=== PATIENT | male | born 1960 | race Caucasian/White ===

== ENCOUNTER → 2020-12-05 16:56 | Outpatient (CLI) | payer OTHER, SELFPAY ==
--- NOTE | ~2020-12-05 | MR_ITS ---
EXAMINATION: MR lumbar spine wo con DATE: 12/05/2020 17:54 INDICATION: Lumbar radiculopathy with bilateral leg numbness and weakness TECHNIQUE: Magnetic resonance imaging (MRI) of the lumbar spine was performed without intravenous con trast. Sequences included sagittal T2-weighted FSE, sagittal T2-weighted FS FSE, sagittal T1-weighted FSE, and axial T2-weighted FSE. COMPARISON: CT abdomen and pelvis dated 06/05/2019 FINDINGS: 15 degree levoscoliosis measured between T12 and L3. 2 mm retrolisthesis L4 on L5 and 3 mm retrolisth esis L5 on S1. Chronic mild anterior wedging at T11 and T12. Lumbar vertebral body heights are normal . There multiple small Schmorl's nodes in the upper lumbar and lower thoracic spine. There are low si gnal intensity Modic type III degenerative endplate changes at several levels in the lumbar spine wit h corresponding sclerotic changes evident on the CT images. Marrow signal intensity is otherwise unre markable. Severe disc height loss at L2-L3, L4-L5 and L5-S1 and moderate disc height loss at the vashti ining disc spaces between T10 and L4. The conus medullaris terminates at L1. There is normal signal i n the caudal spinal cord. Paravertebral soft tissues are unremarkable. The following disc levels are specifically discussed: T12-L1: Disc is bulging with annular fissure and superimposed right paracentral small disc protrusion . There is mild bilateral facet joint osteoarthritis. There is mild bilateral neural foraminal stenos is. There is mild central canal stenosis. L1-L2: Disc is bulging with annular fissure. There is moderate bilateral facet joint osteoarthritis. There is mild to moderate left and severe right neural foraminal stenosis. There is mild central thai l stenosis. L2-L3: Disc is bulging with annular fissure. There is hypertrophy of the ligamentum flavum. There is moderate bilateral facet joint osteoarthritis. There is moderate left and moderate right neural emani inal stenosis. There is moderate central canal stenosis. L3-L4: Disc is bulging with annular fissure. There is hypertrophy of the ligamentum flavum. There is moderate bilateral facet joint osteoarthritis. There is moderate bilateral neural foraminal stenosis . There is severe central canal stenosis. L4-L5: Disc is bulging with annular fissure and superimposed central disc extrusion with disc materia l extending a few millimeters cephalad and caudal to the level of the endplates. There is hypertrophy of the ligamentum flavum. There is moderate right and severe left facet joint osteoarthritis. There is a right and moderate to severe left neural foraminal stenosis. There is severe central canal steno sis along with severe narrowing of the left lateral recess compressing the traversing left L5 nerve r oot. L5-S1: Disc is bulging. There is hypertrophy of the ligamentum flavum. There is moderate to severe bi lateral facet joint osteoarthritis. There is severe bilateral neural foraminal stenosis. There is mil d central canal stenosis. IMPRESSION: 1. Mild lumbar levoscoliosis with severe spondylosis including multilevel moderate to severe central canal and bilateral neural foraminal stenosis as detailed above. Reviewed, dictated and finalized at location A. INE ENGINEER IMPRESSION: 1. Mild lumbar levoscoliosis with severe spondylosis including multilevel moder ate to severe central canal and bilateral neural foraminal stenosis as detailed above.
== END ==
PROVIDERS: Visit Provider Physician Assistant Medical
DX: M47.26 Other spondylosis with radiculopathy, lumbar region (principal)
CPT/HCPCS: 72148

== ENCOUNTER → 2022-04-17 11:35 | Outpatient (CLI) | payer OTHER, SELFPAY ==
--- NOTE | ~2022-04-17 | XR_ITS ---
EXAMINATION: XR knee LT min 4V DATE: 04/17/2022 12:35 INDICATION: Left knee pain. TECHNIQUE: 4 views of left knee including standing views were obtained. COMPARISON: None. FINDINGS: Bone alignment is normal. No fracture. There is mild tricompartmental osteoarthritis charac terized by marginal osteophytes. No joint space narrowing. There is chondrocalcinosis of the menisci. There is a small knee joint effusion. IMPRESSION: 1. Mild left knee osteoarthritis. 2. Small left knee joint effusion. Reviewed, dictated and finalized at location A.
== END ==
PROVIDERS: PCP Family Medicine; Visit Provider Family Medicine
DX: M17.12 Unilateral primary osteoarthritis, left knee (principal); M25.462 Effusion, left knee; M11.262 Other chondrocalcinosis, left knee
CPT/HCPCS: 73564

== ENCOUNTER 2023-10-16 07:59 | Outpatient (CLI) | payer MEDICARE, SELFPAY ==
--- NOTE | 2023-10-16 09:00 | ECG_ITS ---
Measurements Intervals [place] Rate: 81 P: 11 CA: 172 QRS: 0 QRSD: 87 T: 50 QT: 364 QTc: 425 Interpretive Statements SINUS RHYTHM WITH OCCASIONAL SUPRAVENTRICULAR PREMATURE COMPLEXES OTHERWISE UNREMARKABLE ECG NO PREVIOUS ECG AVAILABLE FOR COMPARISON Electronically Signed On 10-16-2023 15:11:50 TOOTH GRINDER by Mitchell Cuevas M.D.
[2023-10-16 09:35] LABS: Basophils Absolute Auto 0.1 K/mm3 (0.0-0.1); Basophils Percent Auto 0.5 % (0.2-1.2); Eosinophils Absolute Auto 0.4 K/mm3 (0-0.3); Eosinophils Percent Auto 3.9 % (0-4.4); Hematocrit 42.5 % (42.0-52.0); Hemoglobin 13.3 g/dL (14.0-18.0); Immature Granulocyte Absolute 0.05 K/mm3 (0.00-0.031); Immature Granulocyte Percent A 0.5 % (0-0.5); Lymphocytes Absolute Auto 1.07 K/mm3 (0.9-3.2); Lymphocytes Percent Auto 10.8 % (18.3-44.2); Mean Corpuscular HGB Conc 31.3 g/dl (32-36); Mean Corpuscular Hemoglobin 29.8 pg (26-34); Mean Corpuscular Volume 95.1 fl (80-100); Mean Platelet Volume 9.2 fl (7.4-10.4); Monocytes Absolute Auto 0.9 K/mm3 (0.1-0.6); Monocytes Percent Auto 9.5 % (2.6-8.5); Neutrophils Absolute Auto 7.4 K/mm3 (1.3-6.7); Neutrophils Percent Auto 74.8 % (45.5-73.1); Platelet Count Result 363 k/mm3 (150-375); Red Blood Count 4.47 M/mm3 (4.6-6.20); Red Cell Distribution Width 13.9 % (11.5-14.5); White Blood Count 9.9 K/mm3 (4.5-10.0)
[2023-10-16 09:46] LABS: Albumin Level 4.4 g/dL (3.5-5.1); Anion Gap 7 mmol/L (8-16); Blood Urea Nitrogen 26 mg/dL (9-20); Calcium 9.2 mg/dL (8.4-10.2); Carbon Dioxide 26 mmol/L (22-30); Chloride 106 mmol/L (98-107); Estimated Glomerular Filt Rate > 60; Glucose 103 mg/dL (65-110); Potassium 4.4 mmol/L (3.4-5.0); Sodium 139 mmol/L (137-145)
[2023-10-16 09:49] LABS: Urine Cotinine NEGATIVE
[2023-10-16 10:03] LABS: Hemoglobin A1C 5.3 % (<5.7)
== END 2023-10-16 08:00 | disposition home or self-care (01) ==
LOC: ANHSURGERY 08:05
PROVIDERS: PCP Family Medicine; Visit Provider Orthopaedic Surgery
DX: M17.12 Unilateral primary osteoarthritis, left knee (principal); Z01.818 Encounter for other preprocedural examination
CPT/HCPCS: 80048; 80307; 82040; 83036; 85025; 87081; 93005

== ENCOUNTER 2023-11-11 02:39 | Day surgery (SDC) | payer MEDICARE, SELFPAY ==
--- NOTE | 2023-10-16 07:44 | PC.NURSE ---
PRE-OP INSTRUCTIONS, PLEASE READ CAREFULLY Report to the Outpatient Waiting Room, entrance under the green pavilion located off [address], at time _1000_ on date _11/11/23_. Planned Procedure Time: _1200_. PACK A SMALL OVERNIGHT BAG AND LEAVE IN THE CAR ALONG WITH YOUR WALKER Time changes happen often and if your time is changed the preop area will call you the afternoon before. - You and your visitor will be asked to self-screen and do not enter if you have any COVID symptoms. - A mask is optional within the hospital at this time. -VISITING HOURS 8AM-8PM Patients may have clear liquids (water, carbonated beverages, clear teas, apple juice) until 3 hours prior to surgery (0900 AM) with a maximum of 20 ounces. - No food from midnight until time of surgery Take the following medications with a SIP of water the morning of surgery: _TYLENOL IF NEEDED_ DO NOT STOP ANY OF YOUR OTHER PRESCRIPTION MEDICATIONS PRIOR TO SURGERY ?EXCEPT THE FOLLOWING Medications to discontinue per DR. FALL - _MELOXICAM 7 DAYS PRIOR TO SURGERY, Date to take last dose 11/03/23_ Medications to discontinue per ANESTHESIA - _MULTIVITAMIN 3 DAYS PRIOR TO SURGERY, Date to take last dose 11/07/23_ Please no make-up, nail norwegian, hairspray, perfume, deodorant, or body powder the day of surgery. No jewelry (including any body piercings) or valuables the day of surgery, leave them at home. Please take a shower or bath the night before, or the morning of, surgery with an antibacterial soap. Wear comfortable, loose fitting clothing. - Jewelry must be removed prior to entering the operating room. Rings and piercings that are not removed may be cut off. - The hospital will not accept responsibility for valuables. - Please leave all valuables, including medications, at home the day of surgery. If you are going home after surgery, a licensed rear load truck driver must drive you home. - NO public transportation without another adult if you receive anesthesia. - We recommend that an adult stay with you for 24 hours following discharge. - We also recommend that you do not drive, make important decision, drink alcoholic beverages, or take any drugs that were not prescribed by your health care provider for at least 24 hours after your discharge time. Follow any additional instructions given to you from your surgeon. If you or anyone in your household have experienced Covid symptoms in the past week, please notify your surgeon or the nurse liaison at the phone number below for possible testing. Instructions given to _PATIENT_and asked if any additional questions and then verbalized understanding. Patient advised to call surgeon office or pre surgery nurse liaison [phone] if any additional questions.
[2023-10-16 08:29] VITALS: BP 144/88; PULSE 90; RESP 20; TEMP 36.9; O2SAT 98; BMI 32.8
[2023-11-11] VITALS (9 sets, daily range): BP systolic 122–144; BP diastolic 72–92; PULSE 84–96; RESP 16–18; TEMP 36.1–36.4; O2SAT 91–99
--- NOTE | ~2023-11-11 | XR_ITS ---
EXAMINATION: [id number] DATE: 11/11/2023 17:26 INDICATION: Postoperative evaluation following left total knee arthroplasty. TECHNIQUE: Anteroposterior and lateral views of the left knee were obtained. COMPARISON: 04/17/2022 FINDINGS: Left total knee arthroplasty without patellar resurfacing appears well seated and in near anatomic al ignment. No fractures identified. Expected postoperative subcutaneous and intra-articular gas. IMPRESSION: 1. Left total knee arthroplasty, negative for postoperative purposes. Reviewed, dictated and finalized at location A. TECHNICIAN
--- NOTE | 2023-11-11 07:41 | PM.IMHP ---
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 Farr who presents today for left total knee arthroplasty. Patient has severe lateral compartment osteoarthritis left knee. He has been having symptoms for well over a year. He had a cortisone injection in late 2021 which gave him almost no relief. He has been modifying activities in dealing with pain since then. He does take meloxicam daily. Patient has reached a point his knee is bothering on a regular basis and it is making it difficult for activities of daily living. He would like to proceed with total knee arthroplasty at this point. Review of Systems Review of Systems: All systems reviewed & are unremarkable except as noted in HPI and below PMFSH Past Medical History Medical History Actinic keratosis Rotator cuff arthropathy of left shoulder (~2019) Surgical History Surgical History Status post epidural steroid injection Family History Family History Mother Family history of blood dyscrasia Grandparent Family history of cardiovascular disease Father Family history of Alzheimer's disease Family history of dementia Social History Social History (Updated 10/21/23 @ 14:08 by Becca Aquino MA) Social History: Caffeine- coffee Years smoked: 4 Smoking status: Former smoker Tobacco type: cigarettes Second hand tobacco smoke exposure: No Smoking end date: 08/04/93 Additional smoking assessment comments: CONFIRMED WITH PT-SMOKING 1 CIG/DAY, DENIES ALL FORMS OF TOBACCO USE Alcohol intake: current Drinks per week: 5 Alcohol use details: occasionally Substance use: never Substance use type: does not use Lack of Transportation: No Lack of Food: Never True Current Housing: I Have Housing Concerned About Future Housing: No Difficulty Paying Gas/Electric Bills: No Difficulty Paying for Meds: No Currently Unemployed: No Education: High School Diploma/GED Difficulty w/ Childcare or Family Care: No Living arrangements: with family Spiritual care concerns: No Meds Home Medications and Allergies Home Medications Medication Instructions Recorded Confirmed Type meloxicam 15 mg tablet 15 mg PO DAILY #90 tabs 07/28/23 10/21/23 Rx irbesartan 300 mg tablet See Rx Instructions .Route 09/28/23 10/21/23 Rx .COMPLEX #90 tabs acetaminophen 500 mg tablet 1,000 mg PO QID PRN Pain 10/16/23 10/21/23 History bupropion HCl 300 mg 24 hr tablet, 300 mg PO HS 10/16/23 10/21/23 History extended release cyanocobalamin (vitamin B-12) 1,000 mcg PO HS 10/16/23 10/21/23 History 1,000 mcg capsule ferrous sulfate 325 mg (65 mg 325 mg PO HS 10/16/23 10/21/23 History iron) tablet (Iron (ferrous sulfate)) [id number] 300 mcg-K 60 1 tablet PO HS 10/16/23 10/21/23 History mcg-lycop 600 mcg-lutein 300 mcg tablet (Centrum Silver Ultra Men's) omeprazole 40 mg capsule,delayed 40 mg HS 10/16/23 10/21/23 History release fluoxetine 40 mg capsule 40 mg PO DAILY #90 caps 10/21/23 10/21/23 Rx Allergies Allergy/AdvReac Type Severity Reaction Status Date / Time lisinopril Allergy Unknown Anaphylaxis Verified 10/21/23 14:06 Exam Narrative: 63-year-old male alert pleasant. He is 5 ft 10 and 220 lb. His left knee has a moderate effusion. Range of motion is from 7-125 degrees. He has normal stability in the knee. Some mild tenderness over the lateral joint line. He has mild valgus alignment. Hip range of motion is full without discomfort. Negative Stinchfield maneuver. Normal quad strength. 2+ dorsalis pedis and posterior artery pulse palpable. Normal sensation to left lower extremity and no edema. Resp: Auscultation: clear to auscultation bilaterally
--- NOTE | 2023-11-11 10:12 | WPDANESEPPF ---
Anes - Initial Pre Proc Eval Procedure: Operation Date: 11/11/23 12:00 Proposed Procedures p Left Total Knee Arthroplasty - Jaya Chen MD Date/Time: 11/11/23 10:12 Surgeon: Jaya Chen MD Pre Op Diagnosis: OA left knee Patient Data Age: 63 Gender: M Height: 1.79 m Weight: 105.5 kg Last Vital Signs Temp 98.5 F 10/16/23 08:29 Pulse 90 10/16/23 08:29 Resp 20 10/16/23 08:29 BP 144/88 H 10/16/23 08:29 Pulse Ox 98 10/16/23 08:29 O2 Del Method Room Air 10/16/23 08:29 Allergies Allergy/AdvReac Type Severity Reaction Status Date / Time lisinopril Allergy Unknown Anaphylaxis Verified 10/21/23 14:06 Home Medications Medication Instructions Recorded Confirmed Type meloxicam 15 mg tablet 15 mg PO DAILY #90 tabs 07/28/23 10/21/23 Rx irbesartan 300 mg tablet See Rx Instructions .Route 09/28/23 10/21/23 Rx .COMPLEX #90 tabs acetaminophen 500 mg tablet 1,000 mg PO QID PRN Pain 10/16/23 10/21/23 History bupropion HCl 300 mg 24 hr tablet, 300 mg PO HS 10/16/23 10/21/23 History extended release cyanocobalamin (vitamin B-12) 1,000 mcg PO HS 10/16/23 10/21/23 History 1,000 mcg capsule ferrous sulfate 325 mg (65 mg 325 mg PO HS 10/16/23 10/21/23 History iron) tablet (Iron (ferrous sulfate)) [id number] 300 mcg-K 60 1 tablet PO HS 10/16/23 10/21/23 History mcg-lycop 600 mcg-lutein 300 mcg tablet (Centrum Silver Ultra Men's) omeprazole 40 mg capsule,delayed 40 mg HS 10/16/23 10/21/23 History release fluoxetine 40 mg capsule 40 mg PO DAILY #90 caps 10/21/23 10/21/23 Rx Patient hx anesthesia problems: none Family hx anesthesia problems: none Results Review: All pre-operative results and documents have been reviewed as part of the pre-operative evaluation. [facility] Past Medical History Medical History Actinic keratosis Rotator cuff arthropathy of left shoulder (~2019) Surgical History Surgical History Status post epidural steroid injection Family History Family History Mother Family history of blood dyscrasia Grandparent Family history of cardiovascular disease Father Family history of Alzheimer's disease Family history of dementia Social History Social History (Updated 10/21/23 @ 14:08 by Becca Aquino MA) Social History: Caffeine- coffee Years smoked: 4 Smoking status: Former smoker Tobacco type: cigarettes Second hand tobacco smoke exposure: No Smoking end date: 08/04/93 Additional smoking assessment comments: CONFIRMED WITH PT-SMOKING 1 CIG/DAY, DENIES ALL FORMS OF TOBACCO USE Alcohol intake: current Drinks per week: 5 Alcohol use details: occasionally Substance use: never Substance use type: does not use Lack of Transportation: No Lack of Food: Never True Current Housing: I Have Housing Concerned About Future Housing: No Difficulty Paying Gas/Electric Bills: No Difficulty Paying for Meds: No Currently Unemployed: No Education: High School Diploma/GED Difficulty w/ Childcare or Family Care: No Living arrangements: with family Spiritual care concerns: No Anes - Eval Final PreProcedure Day of Procedure 11/11/23 10:12 Patient weight: obese Heart: regular rate and rhythm Lungs: clear to auscultation Airway: Mallampati scale class II Neurological: alert and oriented Last oral intake: >/= 8 hours ASA classification: III Emergent: no Anesthetic plan: proceed Anesthesia type and monitoring: general ETT and standard monitoring Results Review: All pre-operative results and documents have been reviewed as part of the pre-operative evaluation. Informed Consent: The patient's anesthetic plan and its attendant risks and benefits were discussed with the patient/family/POA. Questions were solicited and answers provided to t
[2023-11-11] MEDS: LACTATED RINGERS 1,000 ML 30 ML IV CONT ×2 (10:15→17:15)
[2023-11-11] MEDS: VANCOMYCIN 1,500 MG/NS 500 ML 1,500 MG/500 ML BAG 250 MG IVPB (10:15)
[2023-11-11] MEDS: TRANEXAMIC ACID 1,000MG/ISO100 1,000 MG/100 ML BAG 200 MG IVPB (10:30)
[2023-11-11] MEDS: ACETAMINOPHEN 500 MG TABLET 1000 MG PO (10:51)
--- NOTE | 2023-11-11 11:53 | WPDHPUPDATE1 ---
History and Physical Update Update Date/Time: 11/11/23 11:53 History and Physical has been reviewed, including an updated exam of the patient. There are NO changes in the patient's condition. Risks, benefits, and alternatives have been discussed and questions answered. Patient agrees to proceed with procedure.
[2023-11-11] MEDS: ceFAZolin 2 GM/D5W 50 ML 2 GM/50 ML BAG IVPB (12:13)
[2023-11-11] MEDS: KETOROLAC 15 MG/ML VIAL (*BKC) IV PUSH ×2 (12:32→21:35)
[2023-11-11] MEDS: ceFAZolin SODIUM 1 GM VIAL 3 GM (13:24)
[2023-11-11] MEDS: GENTAMICIN BONE CEMENT REFOBACIN 1 EACH TOPICAL (15:25)
[2023-11-11] MEDS: TRANEXAMIC ACID 1,000 MG/10 ML AMPUL 1000 MG IV PUSH (15:41)
[2023-11-11] MEDS: ceFAZolin SODIUM 1 GM VIAL 2 GM IV PUSH (15:42)
--- NOTE | 2023-11-11 17:18 | W.PM.PROC2 ---
Procedure Note - Detailed Date of Procedure 11/11/23 Pre-op Diagnosis OA left knee, type two valgus deformity Post-op Diagnosis Same Procedure Performed Left total knee arthroplasty Surgeon Jaya Chen MD [employer] Anesthesia General Findings mm mm Description of Procedure Patient was brought to the operating room and general anesthesia was administered. The left knee was prepped draped usual fashion. Under anesthesia range of motion from 8? to 110?. He received 2 g of Ancef weight based vancomycin 1 g of tranexamic acid preoperatively. The limb was exsanguinated tourniquet elevated to 250 mmHg. A 7 in longitudinal midline incision was used and a standard parapatellar arthrotomy utilized. Infrapatellar and suprapatellar fat pads were excised a quadriceps synovectomy carried out. He had diffuse intense tenosynovitis throughout the knee and some of this was debulked. The quadriceps was scarred down to the femur with limited excursion and the muscle was mobilized of from the distal femoral metaphysis. The patella showed marginal osteophytes which were debrided with intact normal cartilage otherwise. The guide jennifer was inserted down the femoral canal after aspiration of canal contents using the 5 degree valgus cutting bushing 9 mm of bone removed the distal femur. This removed about 7 laterally. Next the tibial plateau was cut. He had a pronounced defect in the posterolateral margin of the lateral plateau over the femur had worn into this area in flexion. We removed about 6 mm of bone from the tibial plateau which removed equal amounts mediolaterally. This left posterior most aspect of the defect remaining at the posterior margin of the lateral plateau posterolateral. About 1 cm diameter. It was contained laterally and partially uncontained posteriorly. The meniscal remnants were excised and the PCL recessed. Because of his grade 2 valgus deformity, care was taken not to release any the deep medial capsule from the tibial plateau. Flexion gap at 90? was 8 mm medially 10 mm laterally. The femoral sizing guide was applied to the distal femur set at 4? of external rotation which matched Whitesides line. Posterior referencing pinholes were placed and the size 70 vanguard cutting block was applied AP and chamfer cuts were made. This gave a flush fit with the anterior chamfer the femoral trial with the anterior cortex. Bone quality was excellent throughout. The tibia was sized to a size 75. This fit line to line anteromedial to proper posterior lateral at proper rotation and is bone was wider than the trial so the posterolateral aspect of the trial covered area of the defect about 5 mm wide 1 cm posteromedial to anterolateral therefore I did not feel that any special long stem was indicated for additional support and I felt we could feel the defect with cement. On trialing we were too tight in flexion and extension. The tightness was present laterally both flexion and extension. Additional 2 mm of bone was removed the tibial plateau. I released the posterolateral capsule from the posterolateral margin of tibial plateau. Is ITB band did not need to be released as it was not excessively tight. And with the insert the knee had a barely positive bounce with the arthrotomy towel clip no bounce no towel clips in the arthrotomy and was still just a little bit tight in deep flexion. There was lift off the tibial trial insert in full flexion. We had already removed the posterior femoral osteophyte and because he had a flexion contracture we had also released posterior capsule centrally. An additional 1-1/2 mm of bone was removed from the tibial plateau and we made sure that the cut surface was perfectly flat. Again his bone density was very dense. Replacing the punch we then trialed with the insert and we had full extension with 2 mm of medial opening 2 mm of lateral opening and gravity flexion 125 without poly lift-off in full flexion lu
--- NOTE | 2023-11-11 18:33 | ADMGEN ---
This patient, Ollie Tellez, was admitted to 3 [facility] Room 303-01. Patient/family oriented to hospital policies and general routines including ID bracelet, bed and alarms, visiting hours, pain management, procedures, bathroom and other care routines, personal items, smoking policy, room service/diet, and visiting hours. Information on how to activate the Rapid Response Team has been discussed. Patient/Family are encouraged to report perceived risks to care and to ask questions if they do not understand what they are told or what they should do.
[2023-11-11] MEDS: IRBESARTAN 150 MG TABLET 300 MG PO (21:33)
[2023-11-11] MEDS: VANCOMYCIN 1,000 MG/NS 250 ML 1,000 MG/250 ML BAG 250 MG IVPB (21:33)
[2023-11-11] MEDS: APIXABAN 2.5 MG TABLET PO (21:34)
[2023-11-11] MEDS: ACETAMINOPHEN 325 MG TABLET 650 MG PO (21:34)
[2023-11-11] MEDS: OPTI-GEN TAB 1 TABLET PO (21:34)
[2023-11-11] MEDS: CYANOCOBALAMIN 1,000 MCG TABLET 1000 MCG PO (21:34)
[2023-11-11] MEDS: buPROPion HCL XL (24 HR) 150 MG TABCR 300 MG PO (21:34)
[2023-11-11] MEDS: FLUoxetine HCL 20 MG CAPSULE 40 MG PO (21:34)
[2023-11-11] MEDS: PANTOPRAZOLE 40 MG TABLET PO (21:35)
[2023-11-11] MEDS: oxyCODONE HCL (*CRX) 5 MG TAB IR PO (21:35)
[2023-11-12] VITALS (9 sets, daily range): BP systolic 126–144; BP diastolic 67–95; PULSE 81–130; RESP 14–20; TEMP 35.7–37.2; O2SAT 94–96; BMI 36.7
[2023-11-12] MEDS: ACETAMINOPHEN 325 MG TABLET 650 MG PO ×2 (05:31→10:26)
[2023-11-12] MEDS: oxyCODONE HCL (*CRX) 5 MG TAB IR PO ×2 (05:32→10:25)
--- NOTE | 2023-11-12 05:56 | ECG_ITS ---
Measurements Intervals [place] Rate: 95 P: 21 KS: 174 QRS: 2 QRSD: 95 T: 60 QT: 360 QTc: 454 Interpretive Statements SINUS RHYTHM ATRIAL PREMATURE COMPLEXES DELAYED PRECORDIAL R/S TRANSITION BASELINE ARTIFACT- I, II, III BORDERLINE ECG COMPARED TO ECG 10/16/2023 09:17:26 NO SIGNIFICANT CHANGES Electronically Signed On 11-12-2023 6:39:49 PREHEMMER by Jorge Alberto Thompson D.O.
[2023-11-12 07:05] LABS: Basophils Percent Auto 0.3 % (0.2-1.2); Eosinophils Percent Auto 0.3 % (0-4.4); Hematocrit 34.9 % (42.0-52.0); Hemoglobin 11.1 g/dL (14.0-18.0); Immature Granulocyte Absolute 0.08 K/mm3 (0.00-0.031); Immature Granulocyte Percent A 0.5 % (0-0.5); Lymphocytes Percent Auto 7.8 % (18.3-44.2); Mean Corpuscular HGB Conc 31.8 g/dl (32-36); Mean Corpuscular Hemoglobin 29.8 pg (26-34); Mean Corpuscular Volume 93.8 fl (80-100); Mean Platelet Volume 9.5 fl (7.4-10.4); Monocytes Absolute Auto 1.7 K/mm3 (0.1-0.6); Monocytes Percent Auto 11.2 % (2.6-8.5); Neutrophils Absolute Auto 12.3 K/mm3 (1.3-6.7); Neutrophils Percent Auto 79.9 % (45.5-73.1); Platelet Count Result 298 k/mm3 (150-375); Red Blood Count 3.72 M/mm3 (4.6-6.20); Red Cell Distribution Width 13.7 % (11.5-14.5); White Blood Count 15.4 K/mm3 (4.5-10.0)
[2023-11-12 07:08] LABS: Anion Gap 5 mmol/L (8-16); Blood Urea Nitrogen 30 mg/dL (9-20); Calcium 8.4 mg/dL (8.4-10.2); Carbon Dioxide 26 mmol/L (22-30); Chloride 105 mmol/L (98-107); Estimated CRCL calculation 93 ml/min; Estimated Glomerular Filt Rate > 60; Glucose 104 mg/dL (65-110); Potassium 3.8 mmol/L (3.4-5.0); Sodium 136 mmol/L (137-145)
--- NOTE | 2023-11-12 07:39 | PC.NURSE ---
pt was tachycardic this AM, EKG stat completed, results called in to Dr Pierce. ST with PVCs lasted for about 15 minutes, resolved since. no new orders. continue to monitor
--- NOTE | 2023-11-12 09:00 | P.PNAN_ITS ---
Anes - Prog Note Post-Op Date/Time: 11/12/23 09:00 Cardiovascular status: normal Respiratory status: normal Airway patency: baseline Mental status: baseline Post-Op hydration status: normal Vital Signs: Last Vital Signs Temp 36.6 C 11/12/23 07:48 Pulse 82 11/12/23 07:48 Resp 14 11/12/23 07:48 BP 133/73 11/12/23 07:48 Pulse Ox 94 11/12/23 07:48 O2 Del Method Nasal Cannula 11/11/23 18:00 O2 Flow Rate 2 11/11/23 18:00 Pain Score (VAS): 01/02 I/O: Intake & Output 11/11/23 11/12/23 11/12/23 23:59 07:59 15:59 Intake Total 350 1050 Output Total 600 Balance 350 450 Laboratory Tests 11/12/23 05:47 11/12/23 05:47 11/11/23 11/12/23 10:25 05:47 WBC 15.4 H RBC 3.72 L Hgb 11.1 L Hct 34.9 L MCV 93.8 MCH 29.8 MCHC 31.8 L RDW 13.7 Plt Count 298 MPV 9.5 Immature Gran % (Auto) 0.5 Neut % (Auto) 79.9 H Lymph % (Auto) 7.8 L Steele % (Auto) 11.2 H Eos % (Auto) 0.3 Baso % (Auto) 0.3 Lymph # (Auto) 1.20 Steele # (Auto) 1.7 H Eos # (Auto) 0.0 Baso # (Auto) 0.0 Abs Immat Gran (auto) 0.08 H Absolute Neuts (auto) 12.3 H Absolute Nucleated RBC 0.0 Nucleated RBC % 0.0 Sodium 136 L Potassium 3.8 Chloride 105 Carbon Dioxide 26 Anion Gap 5 L BUN 30 H Creatinine 0.90 Estim Creat Clear Calc 93 Estimated GFR > 60 Glucose 104 Calcium 8.4 Blood Type A Positive Antibody Screen Negative Post-procedural complaints: none Patient Feedback: Patient satisfied with anesthetic care.
--- NOTE | 2023-11-12 09:46 | ECG_ITS ---
Measurements Intervals [place] Rate: 92 P: 20 MD: 156 QRS: 8 QRSD: 87 T: 35 QT: 350 QTc: 435 Interpretive Statements SINUS RHYTHM ATRIAL PREMATURE COMPLEXES NONSPECIFIC T-WAVE ABNORMALITY- INFERIOR LEADS BORDERLINE ECG COMPARED TO ECG 11/12/2023 06:04:09 T-WAVE ABNORMALITY NOW PRESENT Electronically Signed On 11-12-2023 14:40:24 WAITER/WAITRESS DINING CAR by Jorge Alberto Thompson D.O.
--- NOTE | 2023-11-12 10:01 | P.PNAN_ITS ---
Anes - Prog Note Post-Op Date/Time: 11/12/23 10:01 Cardiovascular status: normal Respiratory status: normal Airway patency: baseline Mental status: baseline Post-Op hydration status: normal Vital Signs: Last Vital Signs Temp 36.6 C 11/12/23 07:48 Pulse 82 11/12/23 07:48 Resp 14 11/12/23 07:48 BP 133/73 11/12/23 07:48 Pulse Ox 94 11/12/23 07:48 O2 Del Method Room Air 11/12/23 08:38 O2 Flow Rate 2 11/11/23 18:00 Pain Score (VAS): 0 I/O: Intake & Output 11/11/23 11/12/23 11/12/23 23:59 07:59 15:59 Intake Total 350 1050 120 Output Total 600 Balance 350 450 120 Laboratory Tests 11/12/23 05:47 11/12/23 05:47 11/11/23 11/12/23 10:25 05:47 WBC 15.4 H RBC 3.72 L Hgb 11.1 L Hct 34.9 L MCV 93.8 MCH 29.8 MCHC 31.8 L RDW 13.7 Plt Count 298 MPV 9.5 Immature Gran % (Auto) 0.5 Neut % (Auto) 79.9 H Lymph % (Auto) 7.8 L [place] % (Auto) 11.2 H Eos % (Auto) 0.3 Baso % (Auto) 0.3 Lymph # (Auto) 1.20 [place] # (Auto) 1.7 H Eos # (Auto) 0.0 Baso # (Auto) 0.0 Abs Immat Gran (auto) 0.08 H Absolute Neuts (auto) 12.3 H Absolute Nucleated RBC 0.0 Nucleated RBC % 0.0 Sodium 136 L Potassium 3.8 Chloride 105 Carbon Dioxide 26 Anion Gap 5 L BUN 30 H Creatinine 0.90 Estim Creat Clear Calc 93 Estimated GFR > 60 Glucose 104 Calcium 8.4 Blood Type A Positive Antibody Screen Negative Post-procedural complaints: none Patient Feedback: Patient satisfied with anesthetic care.
[2023-11-12] MEDS: SENNA/DOCUSATE SODIUM TABLET 2 TAB PO (10:26)
[2023-11-12] MEDS: APIXABAN 2.5 MG TABLET PO (10:26)
[2023-11-12] MEDS: CELECOXIB 200 MG CAPSULE PO (10:27)
[2023-11-12] MEDS: polyethylene glycoL 3350 17 GM POWD.PACK PO (10:27)
[2023-11-12] MEDS: VANCOMYCIN 1,000 MG/NS 250 ML 1,000 MG/250 ML BAG 250 MG IVPB (10:27)
[2023-11-12 10:41] LABS: Troponin I < 0.012 ng/mL (0.000-0.034)
--- NOTE | 2023-11-12 11:06 | PM.PNORT ---
Progress Note: A&P Assessment and Plan (1) History of left knee replacement: Code(s): Z96.652 - Presence of left artificial knee joint Status: Acute Plan Patient is postop day 1 doing very well we went over his postoperative instructions in detail today he voiced understanding and agrees with above plan. See discharge instructions and discharge orders. The patient will follow-up in 2 weeks for postop recheck with Dr. Chen the patient will call immediately for any further problems difficulties or questions. Subjective Subjective Date/Time Seen: 11/12/23 11:06 Interval history: Patient doing well postop day 1 status post left total knee arthroplasty. No complaints looks comfortable alert oriented x3. Normal mood and affect. Tolerated physical therapy well today. Today bedside we discussed postoperative instructions in detail. I stressed elevation of the leg throughout the day except to get up every hour to walk and ambulate not let his leg hang down while sitting in a chair for more than 30 minutes for meals otherwise he should be walking or with his leg elevated. States his pain is well controlled we went over his medication list today. He is ready for discharge to home today. Review of Systems Review of Systems: Ten point review of systems otherwise negative Exam Narrative: Patient is alert oriented x3. Normal mood and affect. Vital signs stable afebrile neurovascularly intact wound clean and dry calves benign up ambulating independently with a walker did well in therapy today. Eating well no other postop complaints pain well controlled. Objective Data Vital Signs Vital Signs: Vital Signs - 24 hr 11/11/23 17:15 11/11/23 17:30 11/11/23 17:40 Temperature 36.4 C L Pulse Rate 96 94 Respiratory Rate 16 16 Blood Pressure 141/92 H 136/88 Pulse Oximetry 99 98 Oxygen Delivery Simple Face Mask Simple Face Mask Room Air Oxygen Flow Rate 6 6 11/11/23 17:45 11/11/23 18:00 11/11/23 18:15 Temperature 36.3 C L Pulse Rate 93 94 92 Respiratory Rate 16 16 16 Blood Pressure 132/85 144/91 H 140/85 Pulse Oximetry 91 97 96 Oxygen Delivery Room Air Nasal Cannula Oxygen Flow Rate 2 11/11/23 18:30 11/11/23 18:48 11/11/23 20:00 Temperature 36.2 C L 36.3 C L 36.1 C L Pulse Rate 91 92 92 Respiratory Rate 18 16 18 Blood Pressure 140/85 129/79 137/83 Pulse Oximetry 92 91 94 Oxygen Delivery Oxygen Flow Rate 11/12/23 00:25 11/11/23 20:00 11/12/23 00:00 Temperature 37.2 C Pulse Rate 85 95 81 Respiratory Rate 18 Blood Pressure 128/85 Pulse Oximetry 96 Oxygen Delivery Oxygen Flow Rate 11/12/23 04:00 11/12/23 05:03 11/12/23 05:55 Temperature 35.7 C L 35.9 C L Pulse Rate 87 91 130 H Respiratory Rate 20 20 Blood Pressure 143/91 H 144/95 H Pulse Oximetry 94 95 Oxygen Delivery Oxygen Flow Rate 11/12/23 07:48 11/12/23 08:38 Temperature 36.6 C Pulse Rate 82 Respiratory Rate 14 Blood Pressure 133/73 Pulse Oximetry 94 Oxygen Delivery Room Air Oxygen Flow Rate Intake/Output Intake/Output: Intake & Output 11/09/23 11/10/23 11/11/23 11/12/23 23:59 23:59 23:59 23:59 Intake Total 350 1170 Output Total 600 Balance 350 570 Meds/Results Medications: Active Medications Generic Name Dose Route Start Last Admin Trade Name Freq PRN Reason Stop Dose Admin Acetaminophen 650 mg 11/11/23 18:00 11/12/23 10:26 Acetaminophen 325 Mg Tablet PO 650 mg Q4H CARLOS Administration Apixaban 2.5 mg 11/11/23 21:00 11/12/23 10:26 Apixaban 2.5 Mg Tablet PO 2.5 mg Q12HR CARLOS Administration Bupropion HCl 300 mg 11/11/23 21:00 11/11/23 21:34 Bupropion Hcl Xl (24 Hr) 150 Mg Tabcr PO 300 mg HS CARLOS Administration Cefdinir 300 mg 11/12/23 21:00 Cefdinir 300 Mg Capsule PO Q12HR CARLOS Celecoxib 200 mg 11/12/23 08:00 11/12/23 10:27 Celecoxib 200 Mg Capsule PO 200 mg DAILY@0800 [facility] Admin
--- NOTE | 2023-11-12 11:20 | PM.DS ---
DS: Admitting Diagnosis Discharge Date November 12, 2023 Admitting Diagnosis Admitting diagnosis-advanced primary osteoarthritis left knee joint Discharge diagnosis-same, status post left total knee arthroplasty DS: Summary Hospital Course Hospital Course: The patient underwent a left total knee arthroplasty performed by Dr. Chen on November 11, 2023. Postop day 1 the patient was doing well he was noted to have some PACs on the heart monitor but this is unchanged from preop testing and appears to be chronic in nature for him. He has no other cardiac complications at this time. Otherwise is doing well up ambulating independently with a walker weight-bearing as tolerated wound is clean and dry vital signs are stable he is afebrile neurovascular is intact and dry calves benign. He is eating well did well in therapy pain is well controlled. We covered the postoperative medications and discharge instructions in detail today at bedside they are as follows listed below. The patient voiced understanding he is to be discharged home in good condition general diet it was stressed to him that he should elevate his legs much as possible to help with swelling control. He will have outpatient physical therapy at our office and follow up with the surgeon in 2 weeks. He is to change the dressing in 1 week will call the office immediately for any problems difficulties or questions. Time Spent with Patient Time attestation: Total time spent providing and/or coordinating discharge services: Exam Narrative: Vital signs stable afebrile neurovascular intact wound clean and dry calves benign ambulating independently and christian well controlled alert oriented x3. Normal mood and affect no other complaints. DS: Data Data Completed and Pending Labs on day of discharge: Labs from last 24 hours 11/12/23 11/12/23 11/11/23 10:05 05:47 10:25 WBC 15.4 H RBC 3.72 L Hgb 11.1 L Hct 34.9 L MCV 93.8 MCH 29.8 MCHC 31.8 L RDW 13.7 Plt Count 298 MPV 9.5 Immature Gran % (Auto) 0.5 Neut % (Auto) 79.9 H Lymph % (Auto) 7.8 L Hall % (Auto) 11.2 H Eos % (Auto) 0.3 Baso % (Auto) 0.3 Lymph # (Auto) 1.20 Hall # (Auto) 1.7 H Eos # (Auto) 0.0 Baso # (Auto) 0.0 Abs Immat Gran (auto) 0.08 H Absolute Neuts (auto) 12.3 H Absolute Nucleated RBC 0.0 Nucleated RBC % 0.0 Sodium 136 L Potassium 3.8 Chloride 105 Carbon Dioxide 26 Anion Gap 5 L BUN 30 H Creatinine 0.90 Estim Creat Clear Calc 93 Estimated GFR > 60 Glucose 104 Calcium 8.4 Troponin I < 0.012 Antibody Screen Negative Procedures/Treatments: Left total knee arthroplasty Discharge Plan Discharge Patient Disposition: Home, Self-Care Discharge Instructions: MARYSE CHEN M.D [facility], [place] [id number] [place] [address] POST-OPERATIVE DISCHARGE INSTRUCTIONS TOTAL KNEE ARTHROPLASTY 1. When resting, do not rest in the chair.When resting, lie on your back, with back flat on the couch or bed, with leg elevated above heart to minimize swelling. You may put a pillow under your head. . Significant swelling could indicate a blood clot and if this occurs call the office (or go to the ER) to have a venous ultrasound. Therefore, do not rest in a chair. 2. At least five times a day spend several minutes stretching your knee into flexion while sitting in the chair and also stretching your knee out straight The abilities to bend your knee fulling and straighten your knee fully are two most important knee functions to focus on during your recovery. 3. It is ok to sit in chair to eat, use the toilet and receive a guest and to do your stretching exercises, but, sitting in a chair will cause your leg to swell. Therefore, avoid additional time sitting in the chair. and don't rest in the chair. 4. Wound Care: Nursing will give you an additional
--- NOTE | 2023-11-12 13:51 | PM.IMCN ---
Assessment and Plan Assessment and plan (1) History of left knee replacement: Code(s): Z96.652 - Presence of left artificial knee joint Status: Acute Assessment and Plan: s/p 11/11/23 Analgesia, IS, PT/OT eval and Rx (2) Essential (primary) hypertension: Code(s): I10 - Essential (primary) hypertension Status: Acute Assessment and Plan: Chronic, stable Resume Irbesartan (3) Fatigue: Code(s): R53.83 - Other fatigue Status: Acute Assessment and Plan: Chronic, Stable (4) Left knee DJD: Code(s): M17.12 - Unilateral primary osteoarthritis, left knee Status: Acute Assessment and Plan: Refractory to medical management s/p TKA, left knee. 11/11/23 (5) Recurrent depressive disorder: Code(s): F33.9 - Major depressive disorder, recurrent, unspecified Status: Acute Assessment and Plan: Chronic, Stable resume Bupropion, Fluoxetine Plan Acute and principal conditions 1. DJD, s/p LTKA, 11/11/23 2. Tachycardia. Cardiology consulted, on Eliquis, may need to add BB Chronic and stable conditions 1. Recurrent depression. Resum Bupropion, Fluoxetine 2. Obesity, BMI 36. Diet and lifestyle modification 3. Hypertension. Resume Irbesartan HPI Date of Consult Consult date: 11/12/23 Requesting Physician: Jaya Chen MD Primary Care Provider: Mitchell Farr MD Consult Narrative Reason for consult: Post-op care and Medical management Narrative: Ollie Tellez is a 63 year old male with a mHx significant for DJD refractory to medical management, depression w/Anxiety, Obesity. After an outpatient medical management approach to his DJD (left knee) failed to ameliorate his symptoms, the decision was made to pursue Left total knee arthroplasty (11/11/23), which he tolerated well with no immediate complications. He however developed asymptomatic tachycardia. He does not smoke/chew tobacco, vape nicotine or consume recreational/illicit drugs; he drinks alcohol in moderation. His family Hx is not contributory to the PC At the bedside, he is alert and calm; not in painful or respiratory distress; his left knee show post-op changes; the rest of his exam is unremarkable except for tachycardia. The hospitalist team was consulted for post-op and medical management. Review of Systems Review of Systems: All systems reviewed & are unremarkable except as noted in HPI and below Constitutional: Constitutional: Reports no additional constitutional complaints Eyes: Eyes: Reports no additional eye complaints ENT: Reports system reviewed and no additional complaints, except as documented Cardiovascular: Cardiovascular: Reports no additional cardiovascular complaints Respiratory: Respiratory: Reports no additional respiratory complaints Gastrointestinal: Gastrointestinal: Reports no additional gastrointestinal complaints Genitourinary: Genitourinary: Reports no additional male genitourinary complaints Musculoskeletal: Musculoskeletal: Reports arthralgias Integumentary/Breasts: Skin/Breast: Reports system reviewed and no additional complaints, except as docu Neurologic: Reports system reviewed and no additional complaints, except as documented Psychiatric: Psychiatric: Reports no additional psychiatric complaints [facility] Past Medical History Medical History (Updated 11/12/23 @ 13:59 by Sheldon Tomlinson MD) Actinic keratosis Rotator cuff arthropathy of left shoulder (~2020) Surgical History Surgical History (Updated 11/12/23 @ 11:10 by JAIMEE Thornton) History of total left knee replacement (TKR) Status post epidural steroid injection Family History Family History Mother Family history of blood dyscrasia Grandparent Family history of cardiovascular disease Father Family history of Alzheimer's disease Family history of dementia Social History Social History (U
--- NOTE | 2023-11-12 15:16 | PM.CNCAR ---
Assessment and Plan Assessment and plan (1) Tachycardia: Code(s): R00.0 - Tachycardia, unspecified Status: Acute Assessment and Plan: He is in sinus rhythm with frequent PACs on telemetry. He does have intermittent tachycardia. This is a regular, narrow complex tachycardia most consistent with atrial tachycardia or SVT. I do not see any clear evidence of atrial fibrillation on telemetry or EKG. He is asymptomatic with the tachycardia. Will hold off on any beta maya at this time since he is asymptomatic OK to discharge, will order a 7 day outpatient rolled seat trimmer. Follow up in our office History of Present Illness History of Present Illness Consult date/time: 11/12/23 15:16 Requesting physician: Sheldon Tomlinson MD Consult reason: Other (Tachycardia) Reason For Visit: OA left knee Narrative: Ollie Tellez is a 63-year-old male with degenerative joint disease here for total left knee arthroplasty which he underwent yesterday. The procedure went well without any complications. However, it was noted that he has intermittent tachycardia on telemetry. Therefore, Cardiology is being asked to see him. Patient denies any history of arrhythmias. He denies any history of any known cardiac problems including congestive heart failure, coronary disease. He denies feeling any palpitations, shortness of breath, chest pain. He also reports that he is not having any pain at the left knee surgical site. At the time of my visit with him he is lying comfortably in bed does not have any complaints. Review of Systems Review of Systems: All systems reviewed & are unremarkable except as noted in HPI and below PMFSH Past Medical History Medical History Actinic keratosis Rotator cuff arthropathy of left shoulder (~2019) Surgical History Surgical History History of total left knee replacement (TKR) Status post epidural steroid injection Family History Family History Mother Family history of blood dyscrasia Grandparent Family history of cardiovascular disease Father Family history of Alzheimer's disease Family history of dementia Social History Social History Social History: Caffeine- coffee Years smoked: 4 Smoking status: Never smoker Tobacco type: cigarettes Second hand tobacco smoke exposure: No Smoking end date: 08/04/93 Additional smoking assessment comments: CONFIRMED WITH PT-SMOKING 1 CIG/DAY, DENIES ALL FORMS OF TOBACCO USE Alcohol intake: current Drinks per week: 2 Alcohol use details: occasionally Substance use: never Substance use type: does not use Do You Feel Safe in your Home?: Yes Lack of Transportation: No Lack of Food: Never True Current Housing: I Have Housing Concerned About Future Housing: No Difficulty Paying Gas/Electric Bills: No Difficulty Paying for Meds: No Currently Unemployed: No Education: Decline to Answer Difficulty w/ Childcare or Family Care: No Living arrangements: with family Spiritual care concerns: No Meds Home Medications and Allergies Home Medications Medication Instructions Recorded Confirmed Type irbesartan 300 mg tablet See Rx Instructions .Route 09/28/23 11/11/23 Rx .COMPLEX #90 tabs bupropion HCl 300 mg 24 hr tablet, 300 mg PO HS 10/16/23 11/11/23 History extended release cyanocobalamin (vitamin B-12) 1,000 mcg PO HS 10/16/23 11/11/23 History 1,000 mcg capsule ferrous sulfate 325 mg (65 mg 325 mg PO HS 10/16/23 11/11/23 History iron) tablet (Iron (ferrous sulfate)) [id number] 300 mcg-K 60 1 tablet PO HS 10/16/23 11/11/23 History mcg-lycop 600 mcg-lutein 300 mcg tablet (Centrum Silver Ultra Men's) omeprazole 40 mg capsule,delayed 40 mg HS
--- NOTE | 2023-11-12 15:30 | PC.NURSE ---
Patient off of unit to have holter monitor placed before discharge
== END 2023-11-12 16:40 | disposition home or self-care (01) ==
LOC: ANHSURGERY 09:39 → ANH3MEDSUR 18:05
PROVIDERS: Internal Medicine; PCP Family Medicine; Visit Provider Orthopaedic Surgery
PROC: (CPT 27447; principal; 2023-11-11 12:00)
DX: M17.12 Unilateral primary osteoarthritis, left knee (principal); I10 Essential (primary) hypertension; F33.9 Major depressive disorder, recurrent, unspecified; R00.0 Tachycardia, unspecified; E66.9 Obesity, unspecified; Z68.36 Body mass index [BMI] 36.0-36.9, adult; Z79.01 Long term (current) use of anticoagulants; Z79.1 Long term (current) use of non-steroidal anti-inflammatories (NSAID); Z79.891 Long term (current) use of opiate analgesic; Z87.891 Personal history of nicotine dependence; Z82.49 Family history of ischemic heart disease and other diseases of the circulatory system
CPT/HCPCS: 27447; 36415; 73560; 80048; 84484; 85025; 86850; 86900; 86901; 93005; 97110; 97161; 97165; 97530; 97535; A9270; C1713; C1776; J0171; J0690; J1100; J1170; J1885; J2250; J2270; J2405; J2704; J2795; J3010; J3370; J7120

== ENCOUNTER 2023-12-07 09:48 | Outpatient (CLI) | payer MEDICARE, SELFPAY | END 2023-12-07 09:49 | disposition home or self-care (01) | LOC: ANHGOSHLAB 09:50 | PROVIDERS: PCP Family Medicine; Visit Provider Nurse Practitioner Family | DX: I48.0 Paroxysmal atrial fibrillation (principal); I10 Essential (primary) hypertension | CPT/HCPCS: 36415; 84443 ==

== ENCOUNTER 2025-05-01 08:39 | Outpatient (CLI) | payer MEDICARE, SELFPAY ==
--- OUTSIDE RECORDS SUMMARY | 2025-05-01 08:52 | XMS_ITS | Data Portability ---
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 He would like to proceed with left total knee arthroplasty rather than continue with non operative treatment. He feels healthy and feels he is active otherwise. I have discussed knee replacement with him in detail. Was given the Ortho info handout on total knee arthroplasty for his review. I explained that there will be numbness lateral to the incision the patient's have difficulty kneeling for a long time after knee replacement and that some patients will have chronic sensitivity the front of her knee. Risk of infection was discussed. He states his teeth are healthy. I explained my preference for that he use antibiotics before dental work in the future. Risk of instability ligament injury fracture component loosening and need for revision surgery discussed. Risk of nerve injury and footdrop discussed. Risk of bleeding need for transfusion and risk of blood clots discussed. Risk of medical complications such as heart attack stroke pulmonary embolism and were reviewed. Patient understands and wishes to proceed. I would like him to see Dr. Farr before surgery and he will stop meloxicam 7 days before surgery. 40 minutes were spent in total care this patient more than half the time spent in [id number] care. Not available 08/29/2023 17:50:30 11/27/2023 11/27/2023 HPI: Patient returns. He is 16 days out from left total knee arthroplasty. Overall he is doing very well. Physical exam: Patient's incision is well healed dressing was removed. He is walking with cane today very naturally without limp. Range of motion is from 0-125 degrees. He has no increased swelling in the lower extremities. Impression: Patient is doing well 16 days out left total knee arthroplasty. He will finish up his Eliquis and transition to baby aspirin twice a day. He is going to continue on the Celebrex. He will continue with outpatient therapy. Will see him back in 2 weeks for re-evaluation Not available 11/27/2023 12:29:59 12/11/2023 12/11/2023 HPI: Patient returns. He is 1 month out from left total knee arthroplasty. On his own 2 weeks ago we talked about transitioning to the baby aspirin twice a day. I was unaware of the fact that he developed AFib postoperatively. He is still on his Eliquis per the second cutter's instructions. He actually saw the second cutter 2 days ago. He is scheduled for an echo in early January. Overall the knee is doing well. He is extremely happy with his results so far. Physical exam: Patient is walking well today without limb for assistance. Range of motion is from 0-135 degrees. There is no increased swelling in either lower extremity. Impression: Patient is doing very well 1 month out from left total knee arthroplasty. He will continue on the Eliquis per the second cutter directions. Will see him back in 2 weeks with x-rays. Not available 12/11/2023 10:19:16 12/21/2023 12/21/2023 Patient returns. He is now 6 weeks after his left total knee arthroplasty. He is doing well. He has been on Eliquis 5 mg twice daily since surgery. He is apparently not a candidate for a an ablation so has been advised he will likely be on the Eliquis for life. Gets an echocardiogram January 24 [address] will be [address] Dr[address] Mojica at that for follow-up. He states he has been taking meloxicam and I have advised him that he cannot take medications like meloxicam Celebrex or ibuprofen naproxen for regular strength aspirin anymore because of the risk of bleeding complications while taking Eliquis. I wrote these instructions. On exam today is range of motion from 235 . He has no effusion. Extension he has no medial opening 2-3 mm of lateral opening to varus stress. Anterior drawer at 90 is about 2 or 3 mm. He walks well without gait aid and he is having no discomfort today. Impression: Patient is doing well 6 weeks after left total knee arthroplasty. He is not feeling needs any more physical therapy. I have given him written instructions and encouraged him to spent 5 minutes today working on deep flexion stretch and full extension stretch. I explained that some patients will lose little bit of range of motion at the stop doing that during the 1st year. I will see him back in 10 half months for his 1 year follow-up with x-rays that time and if he has any problems in the meantime he will call. Not available 12/21/2023 15:24:34 Plan of Treatment Reminders Order Date Submit Date Provider Last Modified By Organization Details Last Modified Time Details Appointments None record ed. Lab None record ed. Referral None record ed. Procedures None record ed. Surgeries None record ed. Imaging XR, knee 024 12/21/19 24 [email or web address] [facility] [place], [address], [place], [address], 4 10:58:05 XR, knee 023 08/24/20 23 [email or web address] [facility] [place], [address], [place], [address], 3 10:13:33 Medication Orders None record ed. Patient TargetsNo targets recorded. Patient InstructionsNo instructions recorded. Reason for Referral None Reported. Results Created Date Observation Date Name Description Value Unit Range Abnormal Flag Note LastModifiedBy Organization Detail LastModifiedTime 09/22/20 22 XR, knee No observ ation record ed. [id number] [facility] [place] [address], [place], [address], 12/24/2022 19:14:42 09/22/20 22 04/17/2022 XR, knee No observ ation record ed. [id number] Not Available 12/24/2022 19:14:42 08/24/20 23 XR, knee No observ ation record ed. [email or web address] [facility] [place] [address], [place], [address], 08/29/2023 17:26:46 11/04/19 24 10/16/2023 saleem chavez am No observ ation record ed. [email or web address] Not Available 2023 16:49:21 11/11/19 24 11/11/2023 XR, knee No observ ation record ed. [email or web address] [facility] [address], [place], [address], 11/13/2023 11:48:27 12/21/19 24 XR, knee No observ ation record ed. [email or web address] [facility] [place] [address], [place], [address], 12/21/2023 15:22:34 Result Notes None recorded. Problems Name Problem SNOMED Code Status Onset Date Resolution Date Notes Provider Name and Address Organization Details Recorded Time Partial thickness rotator cuff tear 146095783 Active Not Available [facility] 3 19:13:04 Pain of right knee joint 7379130929467 00 Active 2021 Not Available [facility] 3 19:13:04 Pain of left knee joint 5819064157987 07 Active 2022 MONICA Perry null, [facility] [employer] [facility] 3 13:57:19 Osteoarthr itis of left knee joint 4542582834633 09 Active 2023 Melany Shepherd CMA null, [employer] [facility] [employer] [facility] 4 16:33:19 Problem Notes None recorded. Procedures Surgical History Date Name Laterality Status Provider Name and Address Organization Details Recorded Time 03/23/20 reverse prosthetic total arthroplasty of shoulder completed Not Available [facility] 12/24/2022 19:12:27 Knee Replacement completed Thelma mckenna, [place] [facility] 11/27/2023 12:13:37 Imaging Results None recorded. Procedure Notes None recorded. Medical Equipment None Reported. Allergies Allergen ID Allergen Name Allergen Category Reaction Reaction Severity Criticality Documentation Date Start Date Code Code System Note Provider Name and Address Organization Details Recorded Time 00475 lisinopri l medicatio n Not available Not available Not available 12/24/2022 88125 RxNorm Not Available [facility] 19:14:40 Medications Name Sig Start Date Stop Date Status Note LastModified by Organization Details LastModified Time celecoxib 200 mg capsule TAKE 1 CAPSULE BY MOUTH DAILY AT 8 AM 12/11 completed Not Available Not Available Not Available fluoxetine 40 mg capsule TAKE 1 CAPSULE BY MOUTH DAILY active Not Available Not Available No t Available amoxicillin 500 mg capsule 09/15 completed Not Available Not Available Not Available clonidine HCl 0.1 mg tablet 09/15 completed Not Available Not Available Not Available acetaminoph en 325 mg tablet TAKE 2 TABLETS BY MOUTH EVERY 4 HOURS NEEDED FOR PAIN 12/11 completed Not Available Not Available Not Available lisinopril 20 mg-hydrochl orothiazide 12.5 mg tablet TAKE ONE T PO ONCE A DAY 09/15 completed Not Available Not Available Not Available azithromyci n 250 mg tablet 09/15 completed Not Available Not Available Not Available hydrocodone 5 mg-acetamin ophen 325 mg tablet 09/15 completed Not Available Not Available Not Available meloxicam 15 mg tablet TAKE 1 TABLET BY MOUTH DAILY 11/27 completed Not Available Not Available Not Available acetaminoph en 300 mg-codeine 30 mg tablet 09/15 completed Not Available Not Available Not Available amlodipine 5 mg tablet 09/15 completed Not Available Not Available Not Available omeprazole 40 mg capsule,del ayed release TAKE 1 CAPSULE BY MOUTH EVERY DAY 30 MINUTES BEFORE BREAKFAST 11/27 completed Not Available Not Available Not Available tramadol 50 mg tablet 09/15 completed Not Available Not Available Not Available amoxicillin 875 mg tablet 09/15 completed Not Available Not Available Not Available tamsulosin 0.4 mg capsule 09/15 completed Not Available Not Available Not Available Kenalog 10 mg/mL suspension for injection In office injection administe red by the provider 11/27 completed [facility]: 0003- 0494- 20 Not Available Not Available Not Available irbesartan 300 mg-hydrochl orothiazide 12.5 mg tablet Take 1 tablet every day by oral route. 2021 active Not Available Not Available Not Avai lable omeprazole 20 mg capsule,del ayed release 2023 active Not Available Not Available Not Avai lable methylpredn isolone 4 mg tablets in a dose pack 09/15 completed Not Available Not Available Not Available cefdinir 300 mg capsule TAKE 1 CAPSULE BY MOUTH EVERY 12 HOURS 11/27 completed Not Available Not Available Not Available fluticasone propionate 50 mcg/actuati on nasal spray,suspe nsion 09/15 completed Not Available Not Available Not Available irbesartan 300 mg tablet TAKE 1 TABLET BY MOUTH DAILY 12/11 completed Not Available Not Available Not Available amoxicillin 875 mg-potassiu m clavulanate 125 mg tablet TK 1 T PO Q 12 H 09/15 completed Not Available Not Available Not Available oxycodone 5 mg tablet TAKE ONE TABLET BY MOUTH EVERY 4 HOURS NEEDED FOR PAIN 12/11 completed Not Available Not Available Not Available bupropion HCl XL 300 mg 24 hr tablet, extended release TAKE 1 TABLET BY MOUTH EVERY MORNING active Not Available Not Available No t Available metoprolol tartrate 25 mg tablet active Not Available Not Available No t Available Banophen 12.5 mg/5 mL oral liquid 09/15 completed Not Available Not Available Not Available ropivacaine (PF) 5 mg/mL (0.5 %) injection solution In office injection administe red by the provider 11/27 completed Not Available Not Available Not Available Eliquis 5 mg tablet active Not Available Not Available No t Available Eliquis 2.5 mg tablet TAKE 1 TABLET BY MOUTH EVERY 12 HOURS 11/27 completed Not Available Not Available Not Available Stimulant Laxative Plus 8.6 mg-50 mg tablet TAKE 2 TABLETS BY MOUTH TWICE DAILY 11/27 completed Not Available Not Available Not Available Vitals Date Recorded Body height Body mass index (BMI) Body weight Provider Name and Address Organization Details Last Updated DateTime 11/27/2023 177.8 cm 32 kg/m2 160968.1 g Thelma Santacruz [facility] 11/27/2023 12:16:31 Date Recorded Body height Provider Name an d Address Organization Details Last Updated DateTime 12/11/2023 177.8 cm Thelma Santacruz [facility] 12/11/2023 09:53:33 Date Recorded Body height Provider Name an d Address Organization Details Last Updated DateTime 12/21/2023 177.8 cm Thelma Santacruz [facility] 12/21/2023 14:51:15 Date Recorded Body height Provider Name an d Address Organization Details Last Updated DateTime 08/24/2023 177.8 cm Thelma Santacruz [facility] 08/24/2023 13:56:27 Date Recorded Body mass index (BMI) Body height Body weight Provider Name and Address Organization Details Last Updated DateTime 09/22/2022 31.6 kg/m2 177.8 cm 72344.32 g Not Available [facility] 12/24/2022 19:12:48 Social History None recorded. Functional Status Question Answer Note LastModified by Organizat ion Details LastModified Time What is your level of alcohol consumption? Moderate [id number] Information not available 12/24/2022 Mental Status None recorded. Family History Nothing Reported. Medical History Condition Response ARTHRITIS Y ANEMIA/BLOOD DISORDER Y Past Encounters Encounter ID Performer Location Encounter Start Date Encounter Closed Date Diagnosis/Indication Diagnosis SNOMED-CT Code Diagnosis ICD10 Code Diagnosis Note [id number] MD [facility] [place] [address] [place] [address] 09/22/2022 00:00:00 09/22/2022 16:07:58 [id number] MD TERRI Santos [facility] [place] [address] [place] [address] 08/24/2023 13:51:38 08/31/2023 10:13:33 Pain of left knee joint 2114812840 46867 M25.374 [id number] Jaya April, MD [facility] [place] [address] [place], [place] [address] 11/27/2023 11:56:18 11/27/2023 12:37:27 History of left total knee replacement 8835469838 214774 Z96.328 [id number] Jaya Chen MD [facility] [place] [address] [place], [place] [address] 12/11/2023 09:50:00 12/11/2023 10:27:33 History of left total knee replacement 2940816737 000013 Z96.437 [id number] Jaya Chen MD [facility] [place] [address] [place], [place] [address] 12/21/2023 14:48:11 12/21/2023 15:52:00 History of left total knee replacement 6251569262 847638 Z96.652 Health Concerns Section Related Observation LastModified by Organization Detai ls LastModified Time None Recorded Concern Status LastModified by Organization Details LastModified Time None Recorded Advance Directives Directive None Recorded Payers Insurance Date Sequence Insurance Name Policy Number Policy James Covered Member ID James Member ID Guarantor Name 12/21/2023 1 [facility] [id number] Ollie Khan Geoff [id number] Ollie Khan Geoff 12/21/2023 [employer] Ollie Khan Geoff Ollie Khan Geoff 12/21/2023 [place] [employer] Ollie Khan Geoff 12/21/2023 2 [facility] (MEDICARE SUPPLEMENT) Ollie Khan Geoff [id number] Ollie Khan Geoff 12/21/2023 1 [place] Ollie Khan Tellez [id number] Ollie Khan Tellez Notes Date Note Type Note Provider Name and Address Organization Details Recorded Time 08/24/2023 text/html patient returns. He was last seen August of 2022. He is noted to have [id number] lateral compartment osteoarthritis at that time was given a cortisone shot. He recalls that the cortisone shot helped for about 2 or 3 weeks. He takes meloxicam 15 mg daily. His last x-ray demonstrated [id number] lateral compartment osteoarthritis on 09/22/2022 left knee. He complains that during the last year his symptoms have gradually worsened and his knee is on trustworthy. Stairs are very difficulty is afraid that it will buckle because of a fall. 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 The knee wakes him at night and he finds it hard to sleep. After he has been sitting he has significant start-up pain and difficulty. Jaya Chen MD [address] [place] [address], [facility] [address], [place], [address], [place] [facility] 08/29/2023 17:51:39
[2025-05-01 13:45] LABS: Alanine Aminotransferase 26 U/L (6-50); Albumin Level 4.3 g/dL (3.5-5.1); Alkaline Phosphatase 78 U/L (38-126); Anion Gap 7 mmol/L (4-12); Aspartate Amino Transferase 34 U/L (17-59); Bilirubin,Total 0.4 mg/dL (0.2-1.3); Blood Urea Nitrogen 29 mg/dL (9-20); Calcium 9.4 mg/dL (8.4-10.2); Carbon Dioxide 27 mmol/L (22-30); Chloride 106 mmol/L (98-107); Estimated Glomerular Filt Rate > 60; Glucose 104 mg/dL (65-110); Potassium 4.7 mmol/L (3.4-5.0); Sodium 140 mmol/L (137-145); Total Protein 7.5 g/dL (6.3-8.2); Uric Acid 8.1 mg/dL (3.5-8.5)
[2025-05-01 14:14] LABS: Thyroid Stimulating Hormone 1.620 uIU/mL (0.465-4.680)
[2025-05-01 15:53] LABS: Hemoglobin A1C 5.5 % (<5.7)
== END 2025-05-01 08:40 | disposition home or self-care (01) ==
PROVIDERS: PCP Family Medicine; Visit Provider Family Medicine
DX: D50.9 Iron deficiency anemia, unspecified (principal); M10.9 Gout, unspecified; I10 Essential (primary) hypertension; I48.0 Paroxysmal atrial fibrillation; Z13.1 Encounter for screening for diabetes mellitus
CPT/HCPCS: 36415; 80053; 83036; 84443; 84550